=== PATIENT | male | born 1965 | race African-American/Black ===

== ENCOUNTER 2017-09-19 14:01 | Emergency (ER) | payer OTHER ==
[~2017-09-19] VITALS: Ht 180.3 cm; Wt 113.4 kg
[2017-09-19] MEDS ORDERED: KETOROLAC 60 MG/2 ML VIAL. IM ONE (15:00)
--- NOTE | 2017-09-19 15:19 | RAD ---
CT of the lumbar spine without contrast, 09/19/2017: History: Fall, back pain Noncontrast scans were obtained with multiplanar reconstructions produced. The lumbar vertebral heights are well-maintained. No acute fracture or dislocation is identified. There is bony bridging along the superior aspects of both sacroiliac joints. There are moderate scattered marginal spurs. There are moderate degenerative changes involving scattered facet joints bilaterally. There is no evidence of spondylolysis. There are mild scattered posterior disc bulges. At L4-5 there is moderate posterior disc bulging at the midline. No high-grade central spinal stenosis is evident. There is mild posterior disc bulging at L5-S1 with which in conjunction with facet joint spurring is causing mild bilateral foraminal narrowing. IMPRESSION: 1. Mild to moderate scattered degenerative changes as described above. 2. No acute bony abnormality is detected. PQRS Compliance Statement: One or more of the following individualized dose reduction techniques were utilized for this examination: 1. Automated exposure control 2. Adjustment of the mA and/or kV according to patient size 3. Use of iterative reconstruction technique
--- NOTE | 2017-09-19 15:38 | RAD ---
Right knee, 3 views, 09/19/2017: History: Fall, knee pain There is moderate narrowing of the knee joint space most prominent medially. There is moderate marginal spurring at the knee joint and at the patellofemoral articulation.. No acute fracture or dislocation is identified. No large joint effusion is evident. IMPRESSION: 1. Moderate hypertrophic degenerative change. 2. No acute bony abnormality is detected.
[2017-09-19] MEDS ORDERED: TRAM-48 PO (15:43)
[2017-09-19] MEDS ORDERED: CYCL-331 PO (15:43)
--- NOTE | 2017-09-19 15:43 | PHYS DOC ---
Past History Past Medical History: Arthritis, GERD, Hypertension Past Surgical History: Appendectomy Smoking: Non-smoker Alcohol Use: None Drug Use: None Adult General Chief Complaint Chief Complaint: BACK PAIN OR INJURY HPI HPI 51-year-old male patient with history of arthritis state he fell on ice at parking lot of his work and landed on his back and injured his right knee and his back. Patient denies loss of consciousness and other injuries. Patient complaining of sharp pain in his right knee that getting force with movement and CT was not able to walk without pain. Patient rated his pain 9/10. Patient denies focal neuro deficit, nausea and vomiting, chest pain, shortness of breath. Review of Systems Review of Systems Constitutional: Denies fever or chills [] Eyes: Denies change in visual acuity, redness, or eye pain [] HENT: Denies nasal congestion or sore throat [] Respiratory: Denies cough or shortness of breath [] Cardiovascular: No additional information not addressed in HPI [] GI: Denies abdominal pain, nausea, vomiting, bloody stools or diarrhea [] : Denies dysuria or hematuria [] Musculoskeletal: Reports back pain and joint pain Integument: Denies rash or skin lesions [] Neurologic: Denies headache, focal weakness or sensory changes [] Endocrine: Denies polyuria or polydipsia [] All other systems were reviewed and found to be within normal limits, except as documented in this note. Current Medications Current Medications Current Medications Medications (Trade) Dose Ordered Sig/Heidy Start Time Stop Time Status Last Admin Dose Admin Ketorolac Tromethamine (Toradol) 60 mg 1X ONCE 09/19/17 15:00 09/19/17 15:01 DC 09/19/17 15:15 60 MG Allergies Allergies Allergies Coded Allergies Type Severity Reaction Last Updated Verified acetaminophen Allergy Severe Swelling 09/19/17 Yes hydrocodone Allergy Severe Swelling 09/19/17 Yes Physical Exam Physical Exam Constitutional: Well developed, well nourished, moderate distress, non-toxic appearance. [] HENT: Normocephalic, atraumatic, bilateral external ears normal, oropharynx moist, no oral exudates, nose normal. [] Eyes: PERRLA, EOMI, conjunctiva normal, no discharge. [] Neck: Normal range of motion, no tenderness, supple, no stridor. [] Cardiovascular:Heart rate regular rhythm, no murmur [] Lungs & Thorax: Bilateral breath sounds clear to auscultation [] Abdomen: Bowel sounds normal, soft, no tenderness, no masses, no pulsatile masses. [] Skin: Warm, dry, no erythema, no rash. [] Back: No midline tenderness, no CVA tenderness, limited range of motion, paraspinal muscle spasm. [] Extremities: Right knee with mild edema and limited range of motion without deformity or bone tenderness, no neurovascular deficit Neurologic: Alert and oriented X 3, normal motor function, normal sensory function, no focal deficits noted. [] Psychologic: Affect normal, judgement normal, mood normal. [] Current Patient Data Vital Signs Vital Signs Date Time Temp Pulse Resp B/P (MAP) Pulse Ox O2 Delivery O2 Flow Rate FiO2 09/19/17 15:28 68 18 132/75 (94 95 Room Air 09/19/17 14:01 98.3 EKG EKG [] Radiology/Procedures Radiology/Procedures [] [place] [address] IMAGING REPORT Signed PATIENT: ALICIA CARLOS ACCOUNT: [id number] : 1965 LOCATION: ER AGE: 51 SEX: M EXAM STATUS: REG ER ORD. PHYSICIAN: YAKOV GUNN MD REASON: lumbar pain after fall PROCEDURE: CT LUMBAR SPINE W/CONTRAST CT of the lumbar spine without contrast, 09/19/2017: History: Fall, back pain Noncontrast scans were obtained with multiplanar reconstructions produced. The lumbar vertebral heights are well-maintained. No acute fracture or dislocation is identified. There is bony bridging along the superior aspects of both sacroiliac joints. There are moderate scattered marginal spurs. There are moderate degenerative changes involving scattered facet joints bilaterally. There is no evidence of spondylolysis. There are mild scattered posterior disc bulges. At L4-5 there is moderate posterior disc bulging at the midline. No high-grade central spinal stenosis is evident. There is mild posterior disc bulging at L5-S1 with which in conjunction with facet joint spurring is causing mild bilateral foraminal narrowing. IMPRESSION: 1. Mild to moderate scattered degenerative changes as described above. 2. No acute bony abnormality is detected. PQRS Compliance Statement: One or more of the following individualized dose reduction techniques were utilized for this examination: 1. Automated exposure control 2. Adjustment of the mA and/or kV according to patient size 3. Use of iterative reconstruction technique [address] [address] IMAGING REPORT Signed PATIENT: ALICIA CARLOS ACCOUNT: [id number] : 1965 LOCATION: ER AGE: 51 SEX: M EXAM STATUS: REG ER ORD. PHYSICIAN: YAKOV GUNN MD REASON: fall PROCEDURE: KNEE RIGHT 3V Right knee, 3 views, 09/19/2017: History: Fall, knee pain There is moderate narrowing of the knee joint space most prominent medially. There is moderate marginal spurring at the knee joint and at the patellofemoral articulation.. No acute fracture or dislocation is identified. No large joint effusion is evident. IMPRESSION: 1. Moderate hypertrophic degenerative change. 2. No acute bony abnormality is detected. DICTATED AND SIGNED BY: LOVELY MANDUJANO MD DATE: 09/19/17 1534 CC: SHEREEN PENA MD; YAKOV GUNN MD ~ Course & Med Decision Making Course & Med Decision Making Pertinent Imaging studies reviewed. (See chart for details) Evaluation of patient in ER showed 50-year-old male patient with history of arthritis and complaining of pain in right knee and back after a fall at work. Patient did not have deformity or bone tenderness. Patient was anxious and in moderate distress and felt better with Toradol. X-ray of right knee interpreted by me and did not show acute fracture. Right knee x-ray showed severe arthritis. Lumbar spine CT did not show acute finding. Patient felt better with treatment in ER. Plan discharge patient home to diagnose of lumbosacral sprain and right knee sprain. Patient has crutches and knee immobilizer and instructed to use them and apply ice on the affected area. I've spoken with the patient and/or caregivers. I've explained the patient's condition, diagnosis and treatment plan based on information available to me at this time. I've answered the patient's and/or caregivers questions and addressed any concerns. The patient and/or caregivers have a good understanding the patient's diagnosis, condition and treatment plan as can be expected at this point. Vital signs have been stabilized. The patient's condition is stable for discharge from the emergency department. The patient will pursue further outpatient evaluation with her primary care provider or other designated consulting physician as outlined in the discharge instructions. Patient and/or caregivers are agreeable to this plan of care and follow-up instructions have been explained in detail. The patient and/or caregivers have received these instructions in written format and expressed understanding of these discharge instructions. The patient and her caregivers are aware that if any significant change in condition or worsening of symptoms should prompt him to immediately return to this of the closest emergency department. If an emergent department is not readily available I would encourage him to call 911. [] Dragon Disclaimer Dragon Disclaimer This electronic medical record was generated, in whole or in part, using a voice recognition dictation system. Departure Departure: Impression: Primary Impression: Acute lumbosacral myofascial strain Additional Impressions: Right knee sprain Fall due to ice or snow Arthritis of right knee Disposition: HOME, SELF-CARE (At 1540) Condition: IMPROVED Referrals: SHEREEN PENA MD (PCP) Patient Instructions: Knee Sprain, Lumbosacral Strain Additional Instructions: Apply ice on the affected area Follow-up with your primary care physician in 3-5 days Return to ER if not getting better Scripts Cyclobenzaprine Hcl (CYCLOBENZAPRINE HCL) 10 Mg Tablet 1 TAB PO TID, #30 TAB Prov: YAKOV GUNN MD 09/19/17 Tramadol Hcl (ULTRAM) 50 Mg Tablet 50 MG PO PRN Q6HRS Y for PAIN, #20 TAB Prov: YAKOV GUNN MD 09/19/17 Problem Qualifiers YAKOV GUNN MD Sep 19, 2017 15:43
[2017-09-19 16:09] VITALS: BP 147/89
[2017-09-19] MEDS ORDERED: traMADol 50 MG TABLET PO ONE (16:15)
[2017-09-19] MEDS ORDERED: CYCLOBENZAPRINE 10 MG TABLET. PO ONE (16:15)
== END 2017-09-19 16:15 | disposition home or self-care (01) ==
LOC: ER 14:01
DX: S39.012A Strain of muscle, fascia and tendon of lower back, initial encounter (principal); S83.91XA Sprain of unspecified site of right knee, initial encounter; M17.11 Unilateral primary osteoarthritis, right knee; I10 Essential (primary) hypertension; K21.9 Gastro-esophageal reflux disease without esophagitis; Z88.6 Allergy status to analgesic agent; Z88.5 Allergy status to narcotic agent; W00.0XXA Fall on same level due to ice and snow, initial encounter; Y93.89 Activity, other specified; Y99.8 Other external cause status; Y92.481 Parking lot as the place of occurrence of the external cause
CPT/HCPCS: 72131; 73562; 96372; 99284; J1885; 72132